=== PATIENT | female | born 1955 | race Caucasian/White ===

== ENCOUNTER 2016-05-12 10:47 | Emergency (ER) | payer OTHER ==
--- NOTE | 2016-05-12 11:31 | REP ---
Left wrist four views : There is no fracture or dislocation. Mineralization and joint spaces are normal. There are no calcifications or foreign bodies. Impression: Negative left wrist . Signed by Krzysztof De Santiago MD 05/12/2016 11:23 A
--- NOTE | 2016-05-12 11:46 | EDDOCDS ---
Physician Documentation [facility] Name: Ysabel Kim Age: 60 yrs Sex: Female : 1955 Arrival Date: 05/12/2016 Time: 10:47 Bed TR7 Private MD: Other - Complete Info On Cds Disposition: 05/12/16 11:38 Discharged to Home/Self Care. Impression: Sprain of carpal joint of left wrist, Sprain of radiocarpal joint of left wrist. - Condition is Stable. - Discharge Instructions: Wrist Splint, Ufar-rr-Lpdh, Wrist Pain, Hpjz-lk-Tjzx. - Medication Reconciliation, Local Pharmacy Hours form. - Follow up: Orthopaedics, [facility]; When: Call to arrange an appointment; Reason: Further diagnostic work-up, Recheck today's complaints, Continuance of care. - Problem is new. - Symptoms are unchanged. Historical: - Allergies: Pyridium; Codeine Sulfate (Extensive family history); - Home Meds: 1. none - PMHx: none; - PSHx: none; - Social history: Smoking status: Patient uses tobacco products, current some day smoker. No barriers to communication noted, The patient speaks fluent Yoruba, Speaks appropriately for age. - Family history: Not pertinent. - : The pt / caregiver states he / she is not on anticoagulants. Home medication list is obtained from the patient. - Exposure Risk Screening:: None identified. Vital Signs: 05/12 10:48 BP 188 / 78; Pulse 111; Resp 20; Temp 98.9(O); Pulse Ox 98% on R/A; Weight 112.94 kg / elp 248.99 lbs (R); Height 5 ft. 7 in. (170.18 cm) (R); Pain 0/10; 10:48 Body Mass Index 39.00 (112.94 kg, 170.18 cm) elp MDM: 11:00 Wrist, Complete Ordered. EDMS 11:37 Splint Affected Extremity ordered. btw Signatures: Dispatcher [employer] EDMS Renay GarzaRN RN ck1 Danelle Nieves RN RN jo3 Yusuf Vega PA PA btw MTDD
--- NOTE | 2016-05-12 11:46 | EDDOCDS ---
[facility] Name: Ysabel Kim Age: 60 yrs Sex: Female : 1955 Arrival Date: 05/12/2016 Time: 10:47 Bed TR7 Private MD: Other - Complete Info On Cds Diagnosis: Sprain of carpal joint of left wrist;Sprain of radiocarpal joint of left wrist Presentation: 05/12 10:52 Presenting complaint: Patient states: Slipped and fell injuring left wrist. Swelling jo3 and pain to lateral left wrist. Adult Sepsis Screening: The patient does not have new or worsening altered mentation. Patient's respiratory rate is less than 22. Systolic blood pressure is greater than 100. Patient has a qSOFA score of 0- Negative Sepsis Screen. Suicide/Homicide risk assessment- the patient denies having any suicidal and/or homicidal ideations and does not present with any other emotional, behavioral or mental health complaints. Status: Patient is not a mobile equipment servicer or dependent. Transition of care: patient was not received from another setting of care. 10:52 Acuity: RYLEE Level 4 jo3 10:52 Method Of Arrival: Walkin/Carried/Asstd jo3 Triage Assessment: 10:55 General: Appears in no apparent distress, comfortable, Behavior is appropriate for age, jo3 cooperative. Pain: Denies pain. HIV screening NA for this visit Offered previously. Neurological: Level of Consciousness is awake, alert, Oriented to person, place, time. Respiratory: Airway is patent Respiratory effort is even, unlabored. Derm: Skin is pink, warm & dry. Historical: - Allergies: Pyridium; Codeine Sulfate (Extensive family history); - Home Meds: 1. none - PMHx: none; - PSHx: none; - Social history: Smoking status: Patient uses tobacco products, current some day smoker. No barriers to communication noted, The patient speaks fluent Belgian, Speaks appropriately for age. - Family history: Not pertinent. - : The pt / caregiver states he / she is not on anticoagulants. Home medication list is obtained from the patient. - Exposure Risk Screening:: None identified. Screenin:44 Screening information is obtained from the patient. Fall risk: No risks identified. ck1 Assistance ADL's: requires no assistance with activities of daily living. Abuse/DV Screen: The patient / caregiver reports he/she is: not in a situation that causes fear, pain or injury. Nutritional screening: No deficits noted. Advance Directives: Currently, there is no health care proxy. home support is adequate. Assessment: 11:44 General: Appears in no apparent distress, comfortable, Behavior is appropriate for age, ck1 cooperative. Pain: Location: left wrist Pain currently is 3 out of 10 on a pain scale. Respiratory: No deficits noted. Derm: Skin is intact, is healthy with good turgor, Skin is pink, warm & dry. Musculoskeletal: Circulation, motion, and sensation intact Range of motion intact in all extremities. Vital Signs: 10:48 BP 188 / 78; Pulse 111; Resp 20; Temp 98.9(O); Pulse Ox 98% on R/A; Weight 112.94 kg elp (R); Height 5 ft. 7 in. (170.18 cm) (R); Pain 0/10; 10:48 Body Mass Index 39.00 (112.94 kg, 170.18 cm) [facility] Vitals: 10:48 Log In Time: May 12, 2016 at 10:45. elp ED Course: 10:48 Patient visited by Marsha Black PCA. elp 10:48 Other - Complete Info On Cds is Private Physician. elp 10:48 Patient moved to Waiting elp 10:49 Patient visited by Marsha Black PCA. elp 10:49 Patient moved to Pre RCE elp 10:54 Triage Initiated jo3 10:56 Patient visited by Danelle Nieves RN. jo3 11:04 Patient moved to Triage 3 jo3 11:07 [facility] btw 11:07 Lauren James MD is Attending Physician. btw 11:16 Patient visited by Yusuf Vega PA. btw 11:[facility] btw 11:42 Patient moved to TR7 kcs 11:43 No IV's were initiated during this patient's visit. No procedures done that require ck1 assistance. Velcro wrist splint applied to left wrist. Patient with positive distal sensation and brisk distal capillary refill after application. 11:45 The patient / caregiver is instructed regarding the plan of care and ED course. ck1 11:45 Wrist, Complete Returned. EDVA Order Results: Radiology Order: Wrist, Complete Test: Wrist, Complete REASON FOR EXAMINATION: Trauma; Left wrist four views :; ; There is no fracture or dislocation.; ; Mineralization and joint spaces are normal.; ; There are no calcifications or foreign bodies.; ; Impression:; ; Negative left wrist .; ; ; Signed by; Krzysztof De Santiago MD 05/12/2016 11:23 A; Outcome: 11:38 Discharge ordered by Provider. btw 11:44 Discharge Assessment: Patient awake, alert and oriented x 3. No cognitive and/or ck1 functional deficits noted. Patient verbalized understanding of disposition instructions. patient administered narcotics - no. The following High Risk Discharge criteria are identified: None. Discharged to home ambulatory. Condition: stable. Discharge instructions given to patient, Instructed on discharge instructions, follow up and referral plans. medication usage, Demonstrated understanding of instructions, medications, Pt was receptive of discharge instructions/ teaching. No special radiology studies were completed. Property :Personal belongings accompany Pt. 11:45 Patient left the ED. ck1 Signatures: Dispatcher [employer] EDVA Radha Jordan, RN RN Renay Prater RN RN ck1 Danelle NievesRN RN melanie3 Yusuf Vega PA PA btw Marsha Black PCA PCA elp MTDD
--- NOTE | 2016-05-14 12:46 | EDDOCDS ---
Physician Documentation [facility] Name: Ysabel Kim Age: 60 yrs Sex: Female : 1955 Arrival Date: 05/12/2016 Time: 10:47 Bed TR7 Private MD: Other - Complete Info On Cds Disposition: 05/12/16 11:38 Discharged to Home/Self Care. Impression: Sprain of carpal joint of left wrist, Sprain of radiocarpal joint of left wrist. - Condition is Stable. - Discharge Instructions: Wrist Splint, Qmad-cw-Lbhd, Wrist Pain, Bwso-tg-Pwfl. - Medication Reconciliation, Local Pharmacy Hours form. - Follow up: Orthopaedics, [facility]; When: Call to arrange an appointment; Reason: Further diagnostic work-up, Recheck today's complaints, Continuance of care. - Problem is new. - Symptoms are unchanged. Historical: - Allergies: Pyridium; Codeine Sulfate (Extensive family history); - Home Meds: 1. none - PMHx: none; - PSHx: none; - Social history: Smoking status: Patient uses tobacco products, current some day smoker. No barriers to communication noted, The patient speaks fluent Armenian, Speaks appropriately for age. - Family history: Not pertinent. - : The pt / caregiver states he / she is not on anticoagulants. Home medication list is obtained from the patient. - Exposure Risk Screening:: None identified. Vital Signs: 05/12 10:48 BP 188 / 78; Pulse 111; Resp 20; Temp 98.9(O); Pulse Ox 98% on R/A; Weight 112.94 kg / elp 248.99 lbs (R); Height 5 ft. 7 in. (170.18 cm) (R); Pain 0/10; 10:48 Body Mass Index 39.00 (112.94 kg, 170.18 cm) elp MDM: 11:00 Wrist, Complete Ordered. EDMS 11:37 Splint Affected Extremity ordered. btw 11:56 Financial registration complete. mm15 11:57 [facility] Payment Agreement was scanned into [employer] and attached to record. mm15 14:57 T-Sheet-- Draft Copy was scanned into [employer] and attached to record. gb Signatures: Dispatcher [employer] EDMS Zulma Vaca, Reg Reg gb Renay GarzaRN RN ck1 Danelle NievesRN RN jo3 Yusuf Vega PA PA btw Emilia Barba mm15 The chart was reviewed and I authenticate all verbal orders and agree with the evaluation and treatment provided.Attachments: 11:57 [facility] Payment Agreement mm15 14:57 T-Sheet-- Draft Copy gb Chart Complete MTDD
--- NOTE | 2016-05-14 12:46 | EDDOCDS ---
Nurse's Notes [facility] Name: Ysabel Kim Age: 60 yrs Sex: Female : 1955 Arrival Date: 05/12/2016 Time: 10:47 Bed TR7 Private MD: Other - Complete Info On Cds Diagnosis: Sprain of carpal joint of left wrist;Sprain of radiocarpal joint of left wrist Presentation: 05/12 10:52 Presenting complaint: Patient states: Slipped and fell injuring left wrist. Swelling jo3 and pain to lateral left wrist. Adult Sepsis Screening: The patient does not have new or worsening altered mentation. Patient's respiratory rate is less than 22. Systolic blood pressure is greater than 100. Patient has a qSOFA score of 0- Negative Sepsis Screen. Suicide/Homicide risk assessment- the patient denies having any suicidal and/or homicidal ideations and does not present with any other emotional, behavioral or mental health complaints. Status: Patient is not a return to service inspector or dependent. Transition of care: patient was not received from another setting of care. 10:52 Acuity: RYLEE Level 4 jo3 10:52 Method Of Arrival: Walkin/Carried/Asstd jo3 Triage Assessment: 10:55 General: Appears in no apparent distress, comfortable, Behavior is appropriate for age, jo3 cooperative. Pain: Denies pain. HIV screening NA for this visit Offered previously. Neurological: Level of Consciousness is awake, alert, Oriented to person, place, time. Respiratory: Airway is patent Respiratory effort is even, unlabored. Derm: Skin is pink, warm & dry. Historical: - Allergies: Pyridium; Codeine Sulfate (Extensive family history); - Home Meds: 1. none - PMHx: none; - PSHx: none; - Social history: Smoking status: Patient uses tobacco products, current some day smoker. No barriers to communication noted, The patient speaks fluent Montserratian, Speaks appropriately for age. - Family history: Not pertinent. - : The pt / caregiver states he / she is not on anticoagulants. Home medication list is obtained from the patient. - Exposure Risk Screening:: None identified. Screenin:44 Screening information is obtained from the patient. Fall risk: No risks identified. ck1 Assistance ADL's: requires no assistance with activities of daily living. Abuse/DV Screen: The patient / caregiver reports he/she is: not in a situation that causes fear, pain or injury. Nutritional screening: No deficits noted. Advance Directives: Currently, there is no health care proxy. home support is adequate. Assessment: 11:44 General: Appears in no apparent distress, comfortable, Behavior is appropriate for age, ck1 cooperative. Pain: Location: left wrist Pain currently is 3 out of 10 on a pain scale. Respiratory: No deficits noted. Derm: Skin is intact, is healthy with good turgor, Skin is pink, warm & dry. Musculoskeletal: Circulation, motion, and sensation intact Range of motion intact in all extremities. Vital Signs: 10:48 BP 188 / 78; Pulse 111; Resp 20; Temp 98.9(O); Pulse Ox 98% on R/A; Weight 112.94 kg elp (R); Height 5 ft. 7 in. (170.18 cm) (R); Pain 0/10; 10:48 Body Mass Index 39.00 (112.94 kg, 170.18 cm) [facility] Vitals: 10:48 Log In Time: May 12, 2016 at 10:45. elp ED Course: 10:48 Patient visited by Marsha Black PCA. elp 10:48 Other - Complete Info On Cds is Private Physician. elp 10:48 Patient moved to Waiting elp 10:49 Patient visited by Marsha Black PCA. elp 10:49 Patient moved to Pre RCE elp 10:54 Triage Initiated jo3 10:56 Patient visited by Danelle Nieves RN. jo3 11:04 Patient moved to Triage 3 jo3 11:07 [facility]uf Vega PA [facility]. btw 11:07 Lauren James MD is Attending Physician. btw 11:16 Patient visited by Yusuf Vega PA. btw 11:38 [facility]. btw 11:42 Patient moved to TR7 kcs 11:43 No IV's were initiated during this patient's visit. No procedures done that require ck1 assistance. Velcro wrist splint applied to left wrist. Patient with positive distal sensation and brisk distal capillary refill after application. 11:45 The patient / caregiver is instructed regarding the plan of care and ED course. ck1 11:45 Wrist, Complete Returned. EDMS 11:57 [facility] Payment Agreement was scanned into [employer] and attached to record. mm15 14:57 T-Sheet-- Draft Copy was scanned into [employer] and attached to record. gb Order Results: Radiology Order: Wrist, Complete Test: Wrist, Complete REASON FOR EXAMINATION: Trauma; Left wrist four views :; ; There is no fracture or dislocation.; ; Mineralization and joint spaces are normal.; ; There are no calcifications or foreign bodies.; ; Impression:; ; Negative left wrist .; ; ; Signed by; Krzysztof De Santiago MD 05/12/2016 11:23 A; Outcome: 11:38 Discharge ordered by Provider. btw 11:44 Discharge Assessment: Patient awake, alert and oriented x 3. No cognitive and/or ck1 functional deficits noted. Patient verbalized understanding of disposition instructions. patient administered narcotics - no. The following High Risk Discharge criteria are identified: None. Discharged to home ambulatory. Condition: stable. Discharge instructions given to patient, Instructed on discharge instructions, follow up and referral plans. medication usage, Demonstrated understanding of instructions, medications, Pt was receptive of discharge instructions/ teaching. No special radiology studies were completed. Property :Personal belongings accompany Pt. 11:45 Patient left the ED. ck1 Signatures: [facility] Radha Jordan, RN RN Zulma Dawn, Reji Reg Renay Salas RN RN ck1 Danelle Nieves RN RN jo3 [place], Brandon, PA PA btw Emilia Barba mm15 Marsha Black PCA RECEIVING SPECIALIST elp Chart Complete MTDD
--- NOTE | 2016-05-14 12:46 | EDDOCDS ---
Physician Documentation [facility] Name: Ysabel Kim Age: 60 yrs Sex: Female : 1955 Arrival Date: 05/12/2016 Time: 10:47 Bed TR7 Private MD: Other - Complete Info On Cds Disposition: 05/12/16 11:38 Discharged to Home/Self Care. Impression: Sprain of carpal joint of left wrist, Sprain of radiocarpal joint of left wrist. - Condition is Stable. - Discharge Instructions: Wrist Splint, Tjae-yv-Csze, Wrist Pain, Aqfv-pf-Namm. - Medication Reconciliation, Local Pharmacy Hours form. - Follow up: Orthopaedics, [facility]; When: Call to arrange an appointment; Reason: Further diagnostic work-up, Recheck today's complaints, Continuance of care. - Problem is new. - Symptoms are unchanged. Historical: - Allergies: Pyridium; Codeine Sulfate (Extensive family history); - Home Meds: 1. none - PMHx: none; - PSHx: none; - Social history: Smoking status: Patient uses tobacco products, current some day smoker. No barriers to communication noted, The patient speaks fluent Maltese, Speaks appropriately for age. - Family history: Not pertinent. - : The pt / caregiver states he / she is not on anticoagulants. Home medication list is obtained from the patient. - Exposure Risk Screening:: None identified. Vital Signs: 05/12 10:48 BP 188 / 78; Pulse 111; Resp 20; Temp 98.9(O); Pulse Ox 98% on R/A; Weight 112.94 kg / elp 248.99 lbs (R); Height 5 ft. 7 in. (170.18 cm) (R); Pain 0/10; 10:48 Body Mass Index 39.00 (112.94 kg, 170.18 cm) elp MDM: 11:00 Wrist, Complete Ordered. EDMS 11:37 Splint Affected Extremity ordered. btw 11:56 Financial registration complete. mm15 11:57 [facility] Payment Agreement was scanned into [employer] and attached to record. mm15 14:57 T-Sheet-- Draft Copy was scanned into [employer] and attached to record. gb Signatures: Dispatcher [employer] EDMS Zulma Vaca, Reg Reg gb Renay GarzaRN RN ck1 Danelle NievesRN RN jo3 Yusuf Vega PA PA btw Emilia Barba mm15 The chart was reviewed and I authenticate all verbal orders and agree with the evaluation and treatment provided.Attachments: 11:57 [facility] Payment Agreement mm15 14:57 T-Sheet-- Draft Copy gb Chart Complete MTDD
== END 2016-05-12 11:45 | disposition home or self-care (01) ==
LOC: M ED 10:47
DX: S63.522A Sprain of radiocarpal joint of left wrist, initial encounter (principal); S63.512A Sprain of carpal joint of left wrist, initial encounter; W00.0XXA Fall on same level due to ice and snow, initial encounter; Y92.89 Other specified places as the place of occurrence of the external cause; Y93.89 Activity, other specified; Y99.0 Civilian activity done for income or pay; F17.210 Nicotine dependence, cigarettes, uncomplicated; Z88.5 Allergy status to narcotic agent; Z88.3 Allergy status to other anti-infective agents